=== PATIENT | female | born 1995 ===

== ENCOUNTER 2021-07-26 10:46 | Emergency (ER) | payer MEDICAID ==
--- NOTE | 2021-07-26 12:31 | XRay Report ---
CHEST 2 VIEWS INDICATION / CLINICAL INFORMATION: cough, congestion, mild SOB. COMPARISON: None available. FINDINGS: SUPPORT DEVICES: None. HEART / MEDIASTINUM: No significant abnormality. LUNGS / PLEURA: No significant pulmonary or pleural abnormality. No pneumothorax. ADDITIONAL FINDINGS: No significant additional findings. IMPRESSION: 1. No acute findings. Signer Name: Bayron Olguin DO Signed: 07/26/2021 12:27 PM Workstation Name: [id number]
--- NOTE | 2021-07-26 12:35 | Emergency Department Report ---
- General Chief Complaint: Upper Respiratory Infection Stated Complaint: FLU SYMTOMS Time Seen by Provider: 07/26/21 11:19 Source: patient Mode of arrival: Ambulatory Limitations: No Limitations - History of Present Illness Initial Comments: Patient is a 26-year-old female presents emergency room complaints of "flulike symptoms" that began 2 days ago. Patient states that her son also has similar symptoms. She has associated dry cough, chest congestion, rhinorrhea, loss of taste and smell, body aches. States occasionally after coughing spell she has mild shortness of breath. She has no shortness of breath currently. She denies any fever, vomiting, diarrhea, hemoptysis, chest pain, leg swelling. No past medical history. No allergies to medications. Last menstrual cycle 07/18/2021. She has not been vaccinated for COVID-19. She has not been tested for COVID-19 since becoming sick. - Related Data Previous Rx's Medication Instructions Recorded Last Taken Type Benzonatate [Tessalon Perles] 100 mg PO Q8HR PRN #12 capsule 07/26/21 Unknown Rx guaiFENesin ER [Mucinex ER] 600 mg PO Q12H #14 tablet.er 07/26/21 Unknown Rx Allergies Allergy/AdvReac Type Severity Reaction Status Date / Time No Known Allergies Allergy Verified 07/26/21 10:59 ED Review of Systems ROS: Stated complaint: FLU SYMTOMS Other details as noted in HPI Comment: All other systems reviewed and negative ED Past Medical Hx - Past Medical History Previous Medical History?: No - Surgical History Past Surgical History?: No - Medications Home Medications: Home Medications Medication Instructions Recorded Confirmed Last Taken Type Benzonatate [Tessalon Perles] 100 mg PO Q8HR PRN #12 capsule 07/26/21 Unknown Rx guaiFENesin ER [Mucinex ER] 600 mg PO Q12H #14 tablet.er 07/26/21 Unknown Rx ED Physical Exam - General Limitations: No Limitations General appearance: alert, in no apparent distress - Head Head exam: Present: atraumatic, normocephalic - Eye Eye exam: Present: normal appearance - ENT ENT exam: Present: normal orophraynx, mucous membranes moist, TM's normal bilaterally, normal external ear exam - Respiratory Respiratory exam: Present: normal lung sounds bilaterally. Absent: respiratory distress, wheezes, rales, rhonchi, stridor, chest wall tenderness, accessory muscle use, decreased breath sounds, prolonged expiratory - Cardiovascular Cardiovascular Exam: Present: regular rate, normal rhythm, normal heart sounds. Absent: systolic murmur, diastolic murmur, rubs, gallop - Neurological Exam Neurological exam: Present: alert, oriented X3 - Psychiatric Psychiatric exam: Present: normal affect, normal mood - Skin Skin exam: Present: warm, dry, intact ED Course Vital Signs 07/26/21 07/26/21 11:02 13:33 Temperature 99.1 F 98.3 F Pulse Rate 86 83 Respiratory 18 14 Rate Blood Pressure 123/77 Blood Pressure 121/71 [Left] O2 Sat by Pulse 98 100 Oximetry ED Medical Decision Making - Radiology Data Radiology results: report reviewed Ordering Physician: CARMENZA FLYNN Date of Service: 07/26/21 Procedure(s): XR chest routine 2V Accession Number(s): [id number] cc: CARMENZA FLYNN Fluoro Time In Minutes: CHEST 2 VIEWS INDICATION / CLINICAL INFORMATION: cough, congestion, mild SOB. COMPARISON: None available. FINDINGS: SUPPORT DEVICES: None. HEART / MEDIASTINUM: No significant abnormality. LUNGS / PLEURA: No significant pulmonary or pleural abnormality. No pneumothorax. ADDITIONAL FINDINGS: No significant additional findings. IMPRESSION: 1. No acute findings. Signer Name: Bayron Olguin DO Signed: 07/26/2021 12:27 PM Workstation Name: [id number] Transcribed By: LALA Dictated By: BAYRON OLGUIN DO Electronically Authenticated By: BAYRON OLGUIN DO Signed Date/Time: 07/26/211226 DD/ 25 TD/TT: Print - Medical Decision Making Patient is a 26-year-old female presents emergency room complaints of "flulike symptoms" that began 2 days ago. Patient states that her son also has similar symptoms. She has associated dry cough, chest congestion, rhinorrhea, loss of taste and smell, body aches. States occasionally after coughing spell she has mild shortness of breath. She has no shortness of breath currently. She denies any fever, vomiting, diarrhea, hemoptysis, chest pain, leg swelling. No past medical history. No allergies to medications. Last menstrual cycle 07/18/2021. She has not been vaccinated for COVID-19. She has not been tested for COVID-19 since becoming sick. Vitals are normal. On exam breath sounds are clear bilaterally, normal oropharynx, normal TMs and canals. Chest x-ray: 1. No acute findings. Symptoms and examination likely consistent with URI. Discussed supportive care and symptomatic treatment with patient the importance of oral hydration. Advised patient Please take medication as prescribed. Increase your fluid intake. May use a vaporizer. Follow-up with your primary care doctor. Recommend for you to get outpatient COVID-19 testing and if positive to self quarantine for 10 days from onset of symptoms. Return to emergency room immediately for any new or worsening symptoms. Critical care attestation.: If time is entered above; I have spent that time in minutes in the direct care of this critically ill patient, excluding procedure time. ED Disposition Clinical Impression: Upper respiratory infection Qualifiers: URI type: unspecified URI Qualified Code(s): J06.9 - Acute upper respiratory infection, unspecified Disposition: 01 HOME / SELF CARE / HOMELESS Is pt being admited?: No Does the pt Need Aspirin: No Condition: Stable Instructions: Viral Respiratory Infection Additional Instructions: Please take medication as prescribed. Increase your fluid intake. May use a vaporizer. Follow-up with your primary care doctor. Recommend for you to get outpatient COVID-19 testing and if positive to self quarantine for 10 days from onset of symptoms. Return to emergency room immediately for any new or worsening symptoms. Prescriptions: guaiFENesin ER [Mucinex ER] 600 mg PO Q12H #14 tablet.er Benzonatate [Tessalon Perles] 100 mg PO Q8HR PRN #12 capsule PRN Reason: cough Referrals: JEREMÍAS KERN MD [Staff Physician] - 3-5 Days [facility] [Provider Group] - 3-5 Days Forms: Work/School Release Form(ED) Time of Disposition: 12:34 Print Language: ICELANDIC
[2021-07-26 13:36] VITALS: BP 121/71
== END 2021-07-26 13:44 | disposition home or self-care (01) ==
LOC: ED 10:46
DX: J06.9 Acute upper respiratory infection, unspecified (principal)
CPT/HCPCS: 71046; 99283